=== PATIENT | female | born 1995 | race Hispanic/Latino ===

== ENCOUNTER 2018-09-18 14:05 | Emergency (ER) | payer MEDICAID ==
[2018-09-18 14:32] VITALS: RESP 18; O2SAT 100
--- NOTE | 2018-09-18 15:14 | C.PDOC ---
History Of Present Illness 22 yr old female w/ no ppmhx p/w abdominal pain. She notes suprapubic abdominal pain started this morning, associated with mild vaginal bleeding. She denies any dark / bloody stool or constipation and denies hematuria. No fall or trauma, but pt notes +Preg test 2 weeks prior. She notes LMP was 08/18. She denies going to any other healthcare provider or clinic and denies any attempted . Notes mild nausea and dizziness, like a lightheadedness. She denies any urinary complaints and denies taking any medications for the pain. No other complaints. Time Seen by Provider: 09/18/18 15:13 Chief Complaint (Nursing): Abdominal Pain Past Medical History Vital Signs: Last Vital Signs Temp 99.4 F 09/18/18 14:30 Pulse 100 H 09/18/18 14:30 Resp 18 09/18/18 14:30 BP 132/82 09/18/18 14:30 Pulse Ox 100 09/18/18 14:30 Primary Care Provider: Non [facility] Provider, Family History: States: No Known Family Hx - Social History Hx Alcohol Use: No Hx Substance Use: No Review Of Systems Constitutional: Negative for: Fever, Chills, Weakness, Malaise Eyes: Negative for: Pain ENT: Negative for: Ear Pain, Ear Discharge, Nose Pain, Nose Congestion, Mouth Pain, Mouth Swelling Cardiovascular: Negative for: Chest Pain, Palpitations, Edema, Light Headedness Respiratory: Negative for: Cough, Shortness of Breath Gastrointestinal: Positive for: Nausea, Abdominal Pain. Negative for: Vomiting, Diarrhea, Constipation, Hematochezia, Hematemesis Genitourinary: Negative for: Dysuria, Frequency, Incontinence Musculoskeletal: Negative for: Neck Pain, Shoulder Pain, Back Pain Neurological: Negative for: Weakness, Numbness, Confusion, Seizures, Headache Psych: Negative for: Anxiety Physical Exam - Physical Exam Appears: Well, Non-toxic, No Acute Distress Skin: Normal Color, Warm, Dry Head: Atraumatic, Normacephalic Eye(s): bilateral: Normal Inspection, PERRL, EOMI Nose: Normal Oral Mucosa: Moist Tongue: Normal Appearing Lips: Normal Appearing Gingiva: Normal Appearing Throat: Normal, No Erythema, No Exudate, No Drooling, No Mass Neck: Normal, No Midline Cervical Tenderness, No Paracervical Tenderness, Supple, Other (no meningeal signs) Lymphatic: No Adenopathy Cardiovascular: Rhythm Regular, No Edema, No Murmur, No JVD Respiratory: Normal Breath Sounds, No Decreased Breath Sounds, No Stridor, No Wheezing Gastrointestinal/Abdominal: Soft, Tenderness (suprapubic, mild), No Mass, No Distention, No Guarding, No Rebound, No Hernia, No Ascites Back: Normal Inspection, No CVA Tenderness, No Vertebral Tenderness, No Decreased ROM Extremity: Normal ROM, No Tenderness Extremity: Bilateral: Atraumatic Pulses: Left Radial: Normal, Right Radial: Normal Neurological/Psych: Oriented x3, Normal Speech, Normal Cognition, Normal Cranial Nerves, No Cerebellar Signs, Normal Motor, Normal Sensation, No Dysarthria Gait: Steady Other Neurological Findings: No Facial Palsy Extremity: Right: No Drift, Left: No Drift ED Course And Treatment - Laboratory Results Result Diagrams: 09/18/18 16:13 09/18/18 16:13 O2 Sat by Pulse Oximetry: 100 Medical Decision Making Medical Decision Makin yr old female w/ lower abd pain, suprapubic, concern for +preg. On exam pt wi th suprapubic tenderness, mild. NO RLQ pain or LLQ pain. No RUQ / epigastric or LUQ pain. No peritoneal signs. Pt laying on stretcher, playing on phone, comfortable. She denies any back pain. No CVAt or midline tenderness. No signs of trauma or fall. She notes mild dizziness, described as a lightheadedness, non vertigo like. No FND. Normal Neuro exam. No reports by pt of abnl vaginal d/c other than blood. She notes only mild bleeding 1/2 of a pad. cramping pain like her previous menstrual cycle. Given + Preg 2 weeks prior, will seek TVUS, labs 1615 negative preg, likely period pain. Probable false+ test given negative HCG as well. 1750 imaging unremarkable labs largely unremarkable TVUS largely unremarkable likely period pain, pt w/ strong, stable gait, full resolution of dizziness per pt and with only mild suprapubic tenderness on repeat clear for d/c home with return indications and f/u, pt agreeable to plan Disposition - Disposition Referrals: [facility] [Outside] [facility] [Outside] [facility] [Outside] [facility] [Outside] [facility] [Outside] Florentino Capellan MD [Staff Provider] - Neva Almendarez MD [Staff Provider] - Disposition: HOME/ ROUTINE Disposition Time: 17:51 Condition: STABLE Additional Instructions: PHONG MEJIA, thank you for letting us take care of you today. Your provider was Oniel Shannon and you were treated for LOWER ABDOMINAL PAIN/VOMITING/URINATING BLOOD. The emergency medical care you received today was directed at your acute symptoms. If you were prescribed any medication, please fill it and take as directed. It may take several days for your symptoms to resolve. Return to the Emergency Department if your symptoms worsen, do not improve, or if you have any other problems. Please contact your doctor or call one of the physicians/clinics you have been referred to that are listed on the Patient Visit Information form that is included in your discharge packet. Bring any paperwork you were given at discharge with you along with any medications you are taking to your follow up visit. Our treatment cannot replace ongoing medical care by a primary care provider outside of the emergency department. Thank you for allowing the [facility] team to be part of your care today. If you had an X-Ray or CT scan: A Radiologist will review the ED reading if any change in treatment is needed we will contact you. If you had a blood, urine, or wound culture: It will take several days for the results, if any change in treatment is needed we will contact you. If you had an STI test: It will take 48 hours for the results. Please call after 1 week if you have not heard back. Instructions: Blood in the Urine (Hematuria), Adult (DC), Menstrual Cramps (DC) Forms: [place] (L[place]uanian) - Clinical Impression Clinical Impression: Menstrual cramps, Hematuria
[2018-09-18] MEDS ORDERED: Sodium Chloride 0.9% 1,000 ML IV ONE (15:29)
[2018-09-18 15:31] LABS: SQUAMOUS EPITHIAL 5 /hpf (0-5); URINE BILIRUBIN NEGATIVE (NEGATIVE); URINE BLOOD 3+ (NEGATIVE); URINE CLARITY Hazy (Clear); URINE COLOR Yellow (YELLOW); URINE GLUCOSE (UA) NORMAL (Normal); URINE LEUKOCYTE ESTERASE NEG Leu/uL (Negative); URINE PROTEIN NEGATIVE (NEGATIVE)
[2018-09-18] MEDS ORDERED: Sodium Chloride 0.9% 1,000 ML ONE (15:48)
[2018-09-18 16:18] LABS: BASO % 0.5 % (0.0-2.0); EOS # 0.1 K/uL (0.0-0.7); EOS % 1.7 % (0.0-4.0); HEMOGLOBIN 10.4 g/dL (11.0-16.0); LYMPH # 1.8 K/uL (1.0-4.3); LYMPH % 21.7 % (20.0-40.0); MEAN CORPUSCULAR HEMOGLOBIN 21.6 pg (27.0-31.0); MEAN CORPUSCULAR HGB CONC 30.4 g/dL (33.0-37.0); MEAN PLATELET VOLUME 7.1 fL (7.2-11.7); MONO # 0.9 K/uL (0.0-0.8); MONO % 11.3 % (0.0-10.0); NEUT # 5.3 K/uL (1.8-7.0); NEUT % 64.8 % (50.0-75.0); RBC 4.83 Mil/uL (3.80-5.20); RED CELL DISTRIBUTION WIDTH 17.7 % (11.5-14.5); WHITE BLOOD COUNT 8.1 K/uL (4.8-10.8)
[2018-09-18 16:31] LABS: ALB/GLOB RATIO 1.3 (1.0-2.1); ALT/SGPT 16 U/L (9-52); AST/SGOT 21 U/L (14-36); BLOOD UREA NITROGEN 13 mg/dL (7-17); CALCIUM 9.4 mg/dl (8.6-10.4); GFR NON-AFRICAN AMERICAN > 60; LIPASE 70 U/L (23-300)
--- NOTE | 2018-09-18 17:38 | US ---
Date of service: 09/18/2018 HISTORY: preg, suprapubic pain COMPARISON: None available. TECHNIQUE: Transabdominal pelvic ultrasound. FINDINGS: UTERUS: Measures 6.7 x 3.6 x 3.9 cm. Anteverted. ENDOMETRIUM: Measures 1.0 cm in diameter. CERVIX: No cervical abnormality identified. RIGHT OVARY: Measures 1.7 x 1.3 x 1.9 cm. Blood flow is demonstrated. LEFT OVARY: Measures 1.7 x 1.7 x 1.6 cm. Blood flow is demonstrated. FREE FLUID: No significant free fluid noted. OTHER FINDINGS: None. IMPRESSION: No evidence of intrauterine gestational sac. If indeed the patient is based on serum beta HCG values, the sonographic findings represent either: Very early IUP; embryonic demise; ectopic gestation. Follow-up with serial quantitative serum beta HCG measurements and post OBGYN follow-up as clinically indicated, since ectopic gestation cannot be excluded based only on sonographic findings.
[2018-09-18 18:08] VITALS: BP 111/72; PULSE 88; TEMP 98.6
== END 2018-09-18 18:35 | disposition home or self-care (01) ==
LOC: C.ER 14:05
DX: N94.6 Dysmenorrhea, unspecified (principal); R31.9 Hematuria, unspecified
CPT/HCPCS: 76830; 80053; 81001; 81025; 83690; 84702; 85025; 86850; 86900; 96374; 99285; J2405; J7030